=== PATIENT | male | born 1955 | race Hispanic/Latino ===

== ENCOUNTER → 2017-07-09 | Day surgery (SDC) | payer BC ==
[~2017-07-09] MED LIST: ATORVASTATIN CA20 MG PO; BELLADONNA/OPIUM 60 MG SUPP PR ONE; CEFTRIAXONE SOD 1 GM VIAL ONE; DEXAMETHASONE SOD PHOS INJ 4 MG/ML VIAL ONE; FENTANYL CITRATE/PF 100MCG/2 ML INJ ONE; FLOMAX0.4 MG PO; GENTAMICIN 80MG/NS 100 ML 200 ML IV ONE; IOPAMIDOL 300MG/ML 50ML INFUS..BTL IV ONE; LIDOCAINE HCL 2% LOCAL INJ 5 ML SDV VIAL INJ ONE; MIDAZOLAM HCL 2 MG/2 ML VIAL ONE; ONDANSETRON HCL INJ 2 MG/ML VIAL ONE; PROPOFOL IV EMULSION 10 MG/ML 20 ML VIAL ONE; SEVOFLURANE INHAL SOLN 250 ML PEN BTL ONE; TESTOSTERO100 MG/1 M INJ
--- NOTE | 2017-07-29 08:23 | Operative Report ---
DATE OF PROCEDURE: July 09, 2017 PREOPERATIVE DIAGNOSES 1. Obstructive BPH. 2. Incomplete bladder emptying. POSTOPERATIVE DIAGNOSES 1. Obstructive BPH. 2. Incomplete bladder emptying. OPERATIONS PERFORMED 1. Cystourethroscopy with bilateral ureteral catheterization and retrograde ureteropyelography (separate procedure performed for the incomplete bladder emptying). 2. Interpretation of retrograde ureteropyelography. 3. Supervision of fluoroscopy. No radiologist present. 4. Cystourethroscopy with transurethral implantation of 4 UroLift implants (separate procedure performed for the obstructive BPH). ANESTHESIA: General. COMPLICATIONS: None. CLINICAL SUMMARY: Dimitri Garnett is a 62-year-old man with longstanding BPH. The patient has been on maximum medical therapy. He has tried Flomax, Cardura, Uroxatral, and Rapaflo. The patient has had persistent and decreasing urinary force of stream. He has nocturia of twice per night. The patient's urinary force of stream has decreased to only 12 mL per second maximally. His average urinary force of stream is less than 9 mL per second. Patient has postvoid residual. His prostate measures 38 mL by ultrasonography and no intravesical median lobe is noted by ultrasonography. The patient is brought to the operating room for the above procedures. He is aware of the risks of bleeding, infection, injury to adjacent structures, need for additional procedures, and elected to proceed. OPERATIVE PROCEDURE IN DETAIL: Informed consent was verified. Dimitri Garnett was properly identified, taken to the operating room, placed on the cystoscopy table in supine position. Anesthesia was uneventfully begun. The patient was then carefully and gently re-positioned in the dorsal lithotomy position with all pressure points well padded. His genitalia were prepared and draped in usual sterile fashion. The 22.5-Gambian cystoscope sheath with the visual obturator in place was atraumatically inserted into the patient's urethra. It was guided down the unremarkable distal urethra through normal sphincteric region, through the prostate bed, which was significant for kissing lateral lobes with visual obstruction and a very minimal non-intravesical median lobe which may be classified potentially as only a median bar. Panendoscopy of the urinary bladder revealed grade 1 to 2 trabeculations, but no tumors, no stones, and no diverticula. Normally positioned and configured ureteral orifices were identified. An 8-Gambian catheter was used to cannulate each ureter and retrograde ureteropyelograms were performed. Interpretation of retrograde ureteropyelography: Contrast was instilled in retrograde fashion bilaterally. There were no tumors, no stones, and no diverticula. Unobstructed drainage was observed bilaterally fluoroscopically. The cystoscope was withdrawn. The 20-Gambian cystoscope was placed with a visual obturator in place. It was guided back into the patient's bladder atraumatically. We then proceeded with placing 4 UroLift implants. Implants were placed anterolaterally, 1.5 cm distal to the bladder neck on either side, as well as at the level of the verumontanum on either side. Once we placed all 4 implants, a continuous anterior open channel was obtained. The patient's bladder was drained. The cystoscope was withdrawn. A belladonna and opium suppository was placed revealing a 40-g prostate that is smooth, nonfluctuant and without any nodules. The left lobe was distinctly larger than the right lobe, although no firm nodule could be palpated. The patient was then uneventfully reversed from anesthesia and taken to the recovery room in stable condition. There were no complications to the procedure. Patient tolerated the procedure well. Explicit postop instructions were given. We will plan on following the patient up for uroflowmetry and bladder ultrasonography in the near future. Job#: [id number] LAUR[place]
== END | disposition home or self-care (01) ==
LOC: OR 07:24
PROVIDERS: ATTEND Urology
DX: N40.1 Benign prostatic hyperplasia with lower urinary tract symptoms (principal); N13.8 Other obstructive and reflux uropathy; R39.14 Feeling of incomplete bladder emptying; N32.89 Other specified disorders of bladder; Z01.810 Encounter for preprocedural cardiovascular examination
CPT/HCPCS: 52005; C9740; 74420; 93005; J0696; J1100; J1580; J2001; J2250; J2405; L8699